=== PATIENT | male | born 1955 | race Caucasian/White ===

== ENCOUNTER → 2023-02-05 11:22 | Outpatient (CLI) | payer MEDICARE, SELFPAY ==
--- NOTE | ~2023-02-05 | US_ITS ---
Limited Abdominal Sonogram: Real-time sonographic imaging of the right upper quadrant was performed. Clinical History: Abdominal pain Findings: The liver appears normal with no evidence of mass lesion or bile duct dilatation. Main por francisca vein demonstrates normal direction of flow. The gallbladder is well distended, and appears normal with no evidence of gallstone or wall thickening. The common bile duct measures 4 mm. The pancreas is obscured by bowel gas shadowing. Right kidney measures 9.8 cm in length, without evidence for hydr onephrosis. Impression: No significant abnormality seen. Reviewed, dictated and finalized at location . Impression: No significant abnormality seen.
== END ==
PROVIDERS: Visit Provider Internal Medicine
DX: R10.9 Unspecified abdominal pain (principal)
CPT/HCPCS: 76705

== ENCOUNTER 2024-05-13 13:25 | Outpatient (RCR) | payer MEDICARE, SELFPAY ==
--- NOTE | 2024-05-13 14:23 | OPREHPOC ---
Outpatient Therapy Plan of Care This is a Multidisciplinary Plan of Care that may contain components documented by all disciplines (PT, OT, and ST.) PT Problem 1 PT Problem #1 Knowledge Deficit PT Goal 1 Goal / Goal Update *indep with HEP Target Visit 4 PT Problem 2 PT Problem #2 Pain PT Goal 1 Goal / Goal Update * no pain increase L knee with increased activity level Target Visit 4 PT Problem 3 PT Problem #3 Impaired Strength PT Goal 1 Goal / Goal Update * increase strength of L knee: *single leg standing L x 40 seconds with good stability Target Visit 4 PT Goal 2 Goal / Goal Update * pt perform mat exercises with 3# ankle wt x 20 reps Target Visit 4
--- NOTE | 2024-05-13 14:23 | PTOPEVAL1 ---
Assessment and note entered by Meli Howard PT Evaluation Information Assessment Status Evaluation Other ICD-10 Condition Codes ( S83.242A L knee medial meniscal tear PT) Onset Jan 2024 Subjective Information after playing golf in Jan, had L knee pain the next day; was better/worse and then went to see ; knee is feeling better xray report states minimal narrowing of L knee joint space Activity: active, fitness center- elliptical machine, leg weights, squat in standing with 45# weight on shoulders; arm exercises; golfs; Reported Pain Level Pain Score Self Report Additional Pain Score Comments pain range in the past week: 0-4/10 increase pain; end range of flexion, sleeping on his R side decrease pain: change positions not taking any pain meds; use of ice PRN- after work out at fitness center PRN; Assessment PT Clinical Summary Awais has the diagnosis of L knee pain/ medial meniscal tear. He is active and pain has decreased since onset of pain. He has been continuing to do fitness exercises and staying active. With the evaluation: he has good flexibility and ROM of hips and knees; good strength with mat exercises; slight decrease stability with single leg standing and side lying hip adduction; educated on good fitness exercises and posture with activity. He has a good understanding of progression of activity and monitor knee with increased activity. Skilled PT services are indicated PRN for pt as he progresses his activity level. He is to call if any questions or if changes occur in knee, to call for appointment for additional therapy. Plan of Care Interventions Electrical Stimulation,Hot Pack/Cold Pack,Manual Therapy,Neuro Re-education,Patient/Caregiver Education,Therapeutic Activities,Therapeutic Exercise,Ultrasound PT Services Indicated Yes Treatment Frequency and 0-1x/wk for 4 visits Duration These treatments will address the objective and functional deficits as defined above. The patient will be advanced safely and appropriately in order for the patient to progress towards his/her prior level of function. Additional exercises will be introduced and as well as a comprehensive home exercise program upon discharge, if needed, ?to ensure carryover of functional gains achieved in the clinic. This treatment plan has been reviewed and agreement upon by the patient.
--- NOTE | 2024-06-07 10:55 | PTOPDC ---
Assessment and note entered by Meli Howard, PT Assessment Status Discharge - Pt Not Present Other ICD-10 Condition Codes ( S83.242A L knee medial meniscal tear PT) Onset Jan 2024 Subjective Information pt was not seen this date. Assessment PT Clinical Summary Awais received the PT evaluation on May 13 and was issued a HEP. And was to call if needed additional treatment. He did not return for any further treatment. Discharge PT; the goals were not addressed. Plan of Care PT Services Indicated No
== END 2024-06-07 15:20 | disposition home or self-care (01) ==
LOC: ANHPT 13:25
PROVIDERS: Visit Provider Orthopaedic Surgery
DX: S83.242A Other tear of medial meniscus, current injury, left knee, initial encounter (principal)
CPT/HCPCS: 97110; 97161; 97530

== ENCOUNTER 2024-07-11 11:04 | Outpatient (CLI) | payer MEDICARE, SELFPAY ==
--- NOTE | ~2024-07-11 | MR_ITS ---
EXAMINATION: MR knee LT wo con DATE: 07/11/2024 11:36 INDICATION: Other tear of medial meniscus, current injury. Left knee pain. TECHNIQUE: Magnetic resonance imaging (MRI) of the left knee was performed without intravenous contra st. Sequences included axial PD-weighted FS FSE, coronal PD-weighted FSE and PD-weighted FS FSE, sagi ttal PD-weighted FSE, and sagittal T2-weighted FS FSE. COMPARISON: Left knee radiographs 05/06/24 FINDINGS: Medial compartment: There is a radial tear of posterior horn of medial meniscus. There is shallow partial-thickness carti lakeisha loss of tibial condyle and femoral condyle. Lateral compartment: Lateral meniscus is normal. Lateral compartment cartilage is normal. Patellofemoral compartment: Patellar cartilage is normal. Trochlear cartilage is normal. Ligaments and tendons: The anterior and posterior cruciate ligaments are normal. Medial collateral ligament is normal. There are changes of prior sprain of fibular collateral ligament characterized by increased signal intensi ty proximally. There is mild patellar tendinopathy. Fluid: There is a small knee joint effusion. There is edema in suprapatellar fat pad. There is mild prepatel lar and superficial infrapatellar bursitis. IMPRESSION: 1. Tear of the meniscus. 2. Mild medial compartment chondrosis. 3. Small knee joint effusion. Reviewed, dictated and finalized at location A.
== END 2024-07-11 11:05 | disposition home or self-care (01) ==
PROVIDERS: PCP Internal Medicine; Visit Provider Orthopaedic Surgery
DX: S83.242D Other tear of medial meniscus, current injury, left knee, subsequent encounter (principal); X58.XXXD Exposure to other specified factors, subsequent encounter; M25.462 Effusion, left knee
CPT/HCPCS: 73721

== ENCOUNTER 2024-11-15 07:26 | Outpatient (CLI) | payer MEDICARE, SELFPAY ==
--- NOTE | ~2024-11-15 | US_ITS ---
US right upper quadrant INDICATION: Abdomen pain. PROCEDURE: Realtime right upper abdominal ultrasound. COMPARISON: No prior studies for comparison. FINDINGS: The pancreas is normal without focal mass or pancreatic ductal dilation. Liver echotexture is normal without focal mass or intrahepatic biliary dilatation. There is normal directional flow i n the portal vein. The gallbladder is normal without stones, gallbladder wall thickening or pericholecystic fluid. Comm on bile duct measures 3 mm. No sonographic Matos's sign. IMPRESSION: 1: Normal limited abdominal ultrasound. Reviewed, dictated and finalized at location A.
== END 2024-11-15 07:27 | disposition home or self-care (01) ==
LOC: MICIMG 07:26
PROVIDERS: PCP Internal Medicine; Visit Provider Internal Medicine
DX: R10.11 Right upper quadrant pain (principal)
CPT/HCPCS: 76705

== ENCOUNTER 2024-11-16 10:15 | Outpatient (RCR) | payer MEDICARE, SELFPAY ==
--- NOTE | 2024-09-28 08:52 | PTOPEVAL1 ---
Assessment and note entered by Rocky Fitch Evaluation Information Assessment Status Evaluation ICD-10 Condition Codes (PT) Pain in left knee M25.562 Other ICD-10 Condition Codes ( S83.242A PT) Onset 01/19/24 Subjective Information Pt. reports that he was playing golf in January and noticed knee pain after the outing. He states that he did not seek medical attention for awhile after the onset of pain. He underwent x-ray and MRI which revealed a meniscus tear in the left knee. He states that his doctor suggested surgery , but states that insurance required therapy before surgery. He describes most pain on the inside of the left knee. He states that his pain is constant. He states that pain is noticed with all activities, even at rest. He states that he has attempted anti-inflammatories and Voltarin cream, with little relief. He reports that pain will make it difficult to fall asleep. He reports that he is not doing his normal activities, and states that he cannot currently golf due to pain. He reports that his goal is to decrease his knee pain with standing and walking activities. Reported Pain Level Pain Score 3: Self Report Assessment PT Clinical Summary Pt. is a 69 year old male who enters the clinic with a diagnosis of left knee pain due to medial meniscus tear. He presents with impaired l.e. flexibility, mild proximal l.e. weakness, impaired left knee ROM, impaired gait and pain. continued skilled PT is indicated in order to improve these areas to allow the pt. to achieve his goal of decreased pain to return to normal IADL's. Plan of Care Interventions Electrical Stimulation,Gait Training,Hot Pack/Cold Pack,Manual Therapy,Neuro Re-education,Patient/ Caregiver Education,Therapeutic Activities, Therapeutic Exercise PT Services Indicated Yes Treatment Frequency and 2x/week x 10 visits Duration These treatments will address the objective and functional deficits as defined above. The patient will be advanced safely and appropriately in order for the patient to progress towards his/her prior level of function. Additional exercises will be introduced and as well as a comprehensive home exercise program upon discharge, if needed, ?to ensure carryover of functional gains achieved in the clinic. This treatment plan has been reviewed and agreement upon by the patient.
--- NOTE | 2024-09-28 08:53 | OPREHPOC ---
Outpatient Therapy Plan of Care This is a Multidisciplinary Plan of Care that may contain components documented by all disciplines (PT, OT, and ST.) PT Problem 1 PT Problem #1 Knowledge Deficit PT Goal 1 Goal / Goal Update Pt. will be independent with a HEP addressing l.e. ROM and strength Target Visit 2 PT Problem 2 PT Problem #2 Pain PT Goal 1 Goal / Goal Update Pt. will report pain levels at 3/10 at worst with prolonged standing activities. pt. will be able to fall asleep at night without pain disturbance. Target Visit 10 PT Problem 3 PT Problem #3 Impaired Range of Motion PT Goal 1 Goal / Goal Update Pt. will achieve 0-125 degrees left knee AROM Target Visit 10 PT Problem 4 PT Problem #4 Impaired Functional Mobility PT Goal 1 Goal / Goal Update Pt. will present with less than 20% limitation on the LEFS Pt. will be able to return to normal IADL's including golf without noted pain. Target Visit 10 PT Problem 5 PT Problem #5 Impaired Strength PT Goal 1 Goal / Goal Update Pt. will present with 5/5 bilateral hip abduction strength Target Visit 10
--- NOTE | 2025-01-12 08:45 | PTOPDC ---
Assessment and note entered by Gordon Chow, PT Evaluation Information Assessment Status Discharge - Pt Not Present ICD-10 Condition Codes (PT) Pain in left knee M25.562 Other ICD-10 Condition Codes ( S83.242A PT) Onset 01/19/24 Subjective Information Pt. reports that he was playing golf in January and noticed knee pain after the outing. He states that he did not seek medical attention for awhile after the onset of pain. He underwent x-ray and MRI which revealed a meniscus tear in the left knee. He states that his doctor suggested surgery , but states that insurance required therapy before surgery. He describes most pain on the inside of the left knee. He states that his pain is constant. He states that pain is noticed with all activities, even at rest. He states that he has attempted anti-inflammatories and Voltarin cream, with little relief. He reports that pain will make it difficult to fall asleep. He reports that he is not doing his normal activities, and states that he cannot currently golf due to pain. He reports that his goal is to decrease his knee pain with standing and walking activities. Assessment PT Clinical Summary Patient last present for this episode of care on . Patient returned for new episode of care December 2024. Plan of Care PT Services Indicated Yes
== END 2024-12-27 23:59 | disposition home or self-care (01) ==
LOC: ANHPT 10:15
PROVIDERS: PCP Internal Medicine; Visit Provider Orthopaedic Surgery
DX: M25.562 Pain in left knee (principal); S83.242A Other tear of medial meniscus, current injury, left knee, initial encounter
CPT/HCPCS: 97035; 97110; 97140; 97161; 97530

== ENCOUNTER 2024-12-23 07:58 | Outpatient (CLI) | payer MEDICARE, SELFPAY ==
--- NOTE | 2024-12-23 08:10 | ECG_ITS ---
Test Date: 2024-12-23 08:13:34 Measurements Intervals [place] Rate: 66 P: 67 NE: 183 QRS: 60 QRSD: 103 T: 53 QT: 403 QTc: 423 Interpretive Statements SINUS RHYTHM No previous ECG available for comparison Electronically Signed On 12-23-2024 12:37:39 CDT by Power Mckenzie M.D.
--- OUTSIDE RECORDS SUMMARY | 2024-12-23 08:12 | XMS_ITS | Clinical Summary ---
Author Organization [facility] Address [address] [place] [address] Care Team Providers Care Lath Hand Name Role Phone Osman Barba MD Primary Care Provider [phone] Source Comments [facility],non-owned Affiliates and Associated Physician Practices is amultiple site organization consisting of ambulatory clinics and hospital sitesin [place], [place], [place] and [place]. This disclosure is being madepursuant to the Care Everywhere program and may not contain all information available regarding this patient. Last updated 18.[facility] Allergies No known active allergies Medications * Be aware that medications may not be up to date on this document. Alwaysverify current medications with the patient. [place]-3 Fatty Acids (FISH OIL) 1000 MG capsule Take 1,000 mg by mouth once daily Active Multiple Vitamin (MULTI VITAMIN MENS PO) Take 1 Tab by mouth once daily Active hydrocodone-acet aminophen (NORCO) 5-325 MG tablet Take 1 Tab by mouth every 4 hours as needed for Pain 30 Tab 0 07/30/2015 Active Active Problems Problem Noted Date Diagnosed Date Sprain of thumb Social History Tobacco Use Types Packs/Day Years Used Date Smoking Tobacco: Former Tobacco Cessation:Counseling Given: No Alcohol Use Standard Drinks/Week Comments No 0 (1 standard drink = 0.6 oz pur e alcohol) Sex and Gender Information Value Date Recorded Sex Assigned at Not on file Legal Sex Male 7:03 AM CDT Gender Identity Not on file Sexual Orientation Not on file Last Filed Vital Signs Vital Sign Reading Time Taken Comments Blood Pressure 139/81 07/30/2015 11:57 AM CDT Pulse 51 07/30/2015 11:57 AM CDT Temperature 36.4 C (97.6 F) 08/29/2015 10:34 AM CDT Respiratory Rate 16 07/30/2015 11:57 AM CDT Oxygen Saturation 100% 07/30/2015 11:57 AM CDT Inhaled Oxygen Concentration - - Weight 69.4 kg (153 lb) 11/15/2015 11:10 AM CDT Height 175.3 cm (5' 9) 11/15/2015 11:10 AM CDT Body Mass Index 22.59 11/15/2015 11:10 AM CDT Plan of Treatment Health Maintenance Due Date Last Done Comments COLOGUARD (AGES 45-75) - COL ON CA SCREENING 1955 COLON MONITORING 1955 COLONOSCOPY - COLON CA SCREENING 1955 CT COLONOGRAPHY - COLON CA SCREENING 1955 Colorectal Cancer Screening 1955 FIT - COLON CA SCREENING 1955 FLEX SIG - COLON CA SCREENING 1955 HEPATITIS C SCREENING 01/29/1973 DTAP/TDAP/TD VACCINES (1 - Tdap) 1974 PNEUMOCOCCAL VACCINE 50+ (1 of 1 - PCV) 2005 ZOSTER VACCINE (1 of 2) 2005 AAA SCREENING 02/04/2020 DEPRESSION SCREENING 04/20/2024 COVID-19 VACCINE (1 - 2023-2 5 season) 2024 INFLUENZA VACCINE (#1) 2024 Respiratory Syncytial Virus (RSV) Vaccine Pt: or over 60 yrs (1 - 1-dose 75+ series) 2030 HEPATITIS B VACCINE Aged Out No longe r eligible based on patient's age to complete this topic HIB VACCINE Aged Out No longer eligi ble based on patient's age to complete this topic HPV VACCINE Aged Out No longer eligi ble based on patient's age to complete this topic MENINGOCOCCAL (Group B) VACC INE SHARED DECISION-MAKING Aged Out No longer eligibl e based on patient's age to complete this topic MENINGOCOCCAL GROUPS A/C/Y/W VACCINE Aged Out No longer eligible b ased on patient's age to complete this topic Medical Devices Implanted Type Area Ed Physicians Device Identifier Shelf Expiration Date Model / Serial / Lot Juggernot Implanted:Qty: 1 on 07/30/2015 by Hong Sanderson MD at [facility] Right: Thumb 10/18/2019 [id number] / / [id number] Insurance ANTHEM ANTHEM Care Teams Lath Hand Relationship Specialty Start Date End Date Osman Barba MD [address] [facility] [address] [place] [address] PCP - General Internal Medicine 07/30/15
--- OUTSIDE RECORDS SUMMARY | 2024-12-23 08:12 | XMS_ITS | Clinical Summary ---
Author Organization [facility] Address [address] [place] [address] Care Team Providers Care Patternmaker Apprentice Wood Name Role Phone Osman Barba MD Primary Care Provider [phone] Allergies No known active allergies Medications Multiple Vitamin (MULTI-VITAMIN DAILY OR) Take 1 tablet by mouth daily. Active fish oil 1000 MG Cap capsule Take 1,000 mg by mouth daily. Active sildenafil 100 MG tablet Take 100 mg by mouth daily as needed. 05/28/2020 Active vitamin D3, cholecalciferol , 5000 UNITS capsule Take 1 capsule by mouth daily. Active Active Problems Problem Noted Date Diagnosed Date Sprain of thumb 05/14/2021 Arteriosclerotic vascular disease 11/26/2011 Overweight 11/26/2011 Sleep disorder 11/26/2011 Social History Tobacco Use Types Packs/Day Years Used Date Smoking Tobacco: Former Cigarettes 1 6 Smokeless Tobacco: Never Comments:Quit 1973 Alcohol Use Standard Drinks/Week Comments Not Currently 0 (1 standard drink = 0.6 oz pur e alcohol) PHQ-2 Answer Date Recorded PHQ-2 Score - If the patient scores above 3, please move on to questions 3-9 0 05/17/2021 Sex and Gender Information Value Date Recorded Sex Assigned at Not on file Legal Sex Male 7:40 PM CDT Gender Identity Not on file Sexual Orientation Not on file Last Filed Vital Signs Vital Sign Reading Time Taken Comments Blood Pressure 137/73 05/17/2021 8:52 AM TAPE DUPLICATOR Pulse 67 05/17/2021 8:16 AM TAPE DUPLICATOR Temperature 36.2 C (97.2 F) 05/17/2021 8:16 AM TAPE DUPLICATOR Respiratory Rate 18 05/17/2021 8:16 AM TAPE DUPLICATOR Oxygen Saturation 98% 05/17/2021 8:16 AM TAPE DUPLICATOR Inhaled Oxygen Concentration - - Weight 76.2 kg (168 lb) 05/17/2021 8:16 AM TAPE DUPLICATOR Height 172.7 cm (5' 8) 05/17/2021 8:16 AM TAPE DUPLICATOR Body Mass Index 25.54 05/17/2021 8:16 AM TAPE DUPLICATOR Plan of Treatment Health Maintenance Due Date Last Done Comments ASCVD LDL 1955 ASCVD Statin 1955 Colorectal Cancer Screening Colonoscopy (10 Years) 1955 Hepatitis C 1973 DTaP, Tdap and Td Vaccines ( 1 - Tdap) 1974 Pneumococcal Vaccine: 50+ Ye ars (1 of 1 - PCV) 2005 Zoster Vaccines (1 of 2) 2005 Annual Medicare Wellness Visit 02/04/2020 COVID-19 Vaccine (1 - 2023-2 5 season) 2024 RSV Immunization or 60+ Years (1 - 1-dose 75+ series) 2030 Meningococcal B Vaccine Aged Out No l onger eligible based on patient's age to complete this topic Meningococcal Vaccine Aged Out No silver yesika eligible based on patient's age to complete this topic RSV Immunizations Under 20 Months Aged Out No longer eligible based on patient's age to complete this topic Insurance [employer] Care Teams Patternmaker Apprentice Wood Relationship Specialty Start Date End Date Osman Barba MD [address] [facility] [address] [place] [address] PCP - General INTERNAL MEDICINE 05/30/20
== END 2024-12-23 07:59 | disposition home or self-care (01) ==
LOC: ANHSURGERY 08:07
PROVIDERS: PCP Internal Medicine; Visit Provider Orthopaedic Surgery
DX: I51.9 Heart disease, unspecified (principal)
CPT/HCPCS: 93005

== ENCOUNTER 2024-12-27 13:21 | Outpatient (CLI) | payer MEDICARE, SELFPAY ==
--- NOTE | ~2024-12-27 | XR_ITS ---
EXAMINATION: XR knee LT min 4V, 12/27/2024 13:26 CDT HISTORY: M25.562 - Pain in left knee COMPARISON: No comparisons available. Findings: No acute fracture or malalignment. No significant degenerative changes. Soft tissues unremarkable. Impression: No acute fracture or malalignment. Reviewed, dictated and finalized at location A. Impression: No acute fracture or malalignment.
== END 2024-12-27 13:22 | disposition home or self-care (01) ==
LOC: MICIMG 13:22
PROVIDERS: PCP Internal Medicine; Visit Provider Orthopaedic Surgery
DX: M25.562 Pain in left knee (principal)
CPT/HCPCS: 73564

== ENCOUNTER 2024-12-30 01:41 | Day surgery (SDC) | payer MEDICARE, SELFPAY ==
[2024-12-22 15:49] VITALS: BMI 23.9
--- NOTE | 2024-12-22 16:11 | PC.NURSE ---
Report to the Outpatient Waiting Room, entrance under the green pavilion located off [facility], at time __12:30PM___ on date __12/30/24___. Planned Procedure Time: __2:30PM____.? Time changes happen often and if your time is changed the preop area will call you the afternoon before. - You and your visitor will be asked to self-screen and do not enter if you have any COVID symptoms. Please call surgeon if you need to reschedule. - A mask is optional within the hospital at this time. Patients may have clear liquids (water, carbonated beverages, clear teas, apple juice) until 3 hours prior to surgery (11:30AM) with a maximum of 20 ounces. - No food from midnight until time of surgery and no smoking, or chewing tobacco (or any form of nicotine). No chewing gum, candy or mints. Take only the following medications with a SIP of water on the morning of surgery: NONE DO NOT STOP ANY OF YOUR OTHER PRESCRIPTION MEDICATIONS PRIOR TO SURGERY EXCEPT THE FOLLOWING Hold all vitamins and supplements for 3 days per anesthesiologist. Medications to discontinue per physician NONE Date to take last dose Please no make-up, nail czech, hairspray, perfume, deodorant, or body powder the day of surgery.? No jewelry (including any body piercings) or valuables the day of surgery, leave them at home.? Please take a shower or bath the night before, or the morning of, surgery with an antibacterial soap.? Wear comfortable, loose fitting clothing.? Children are encouraged to wear pajamas. - Jewelry must be removed prior to entering the operating room.? Rings and piercings that are not removed may be cut off. - The hospital will not accept responsibility for valuables.? - Please leave all valuables, including medications, at home the day of surgery. If you are going home after surgery, a licensed fleet driver must drive you home.? - NO public transportation without another adult if you receive anesthesia. - We recommend that an adult stay with you for 24 hours following discharge. - We also recommend that you do not drive, make important decision, drink alcoholic beverages, or take any drugs that were not prescribed by your health care provider for at least 24 hours after your discharge time. For Pediatric surgeries, we recommend two adults accompany the child home. Follow any additional instructions given to you from your surgeon. Telephone instructions given to ____PATIENT and asked if any additional questions and then verbalized understanding. Patient advised to call surgeon office or pre surgery nurse liaison [phone] if any additional questions.
[2024-12-30] VITALS (8 sets, daily range): BP systolic 123–161; BP diastolic 64–89; PULSE 56–79; RESP 10–18; TEMP 36.2–36.8; O2SAT 96–100
--- OUTSIDE RECORDS SUMMARY | 2024-12-30 01:44 | XMS_ITS | Clinical Summary ---
Author Organization [email or web address] Address [address] [place] [address] Care Team Providers Care Occupational Safety And Health Manager Name Role Phone Osman Barba MD Primary Care Provider [phone] Source Comments [email or web address],non-owned Affiliates and Associated Physician Practices is amultiple site organization consisting of ambulatory clinics and hospital sitesin [place], [place], [place] and [place]. This disclosure is being madepursuant to the Care Everywhere program and may not contain all information available regarding this patient. Last updated 18.[email or web address] Allergies No known active allergies Medications * Be aware that medications may not be up to date on this document. Alwaysverify current medications with the patient. [place]-3 Fatty Acids (FISH OIL) 1000 MG capsule [...] this topic Medical Devices Implanted Type Area Umbrella Mender Device Identifier Shelf Expiration Date Model / Serial / Lot Juggernot Implanted:Qty: 1 on 07/30/2015 by Hong Sanderson MD at [facility] Right: Thumb 10/18/2019 [id number] / / [id number] Insurance ANTHEM ANTHEM Care Teams Occupational Safety And Health Manager Relationship Specialty Start Date End Date Osman Barba MD [address] [facility] [address] [place] [address] PCP - General Internal Medicine 07/30/15
--- OUTSIDE RECORDS SUMMARY | 2024-12-30 01:44 | XMS_ITS | Clinical Summary ---
Author Organization [facility] Address [address] [place] [address] Care Team Providers Care Publicity Agent Name Role Phone Osman Barba MD Primary Care Provider [phone] Allergies No known active allergies Medications Multiple [...] Comments Blood Pressure 137/73 05/17/2021 8:52 AM SPECIMEN BOSS Pulse 67 05/17/2021 8:16 AM SPECIMEN BOSS Temperature 36.2 C (97.2 F) 05/17/2021 8:16 AM SPECIMEN BOSS Respiratory Rate 18 05/17/2021 8:16 AM SPECIMEN BOSS Oxygen Saturation 98% 05/17/2021 8:16 AM SPECIMEN BOSS Inhaled Oxygen Concentration - - Weight 76.2 kg (168 lb) 05/17/2021 8:16 AM SPECIMEN BOSS Height 172.7 cm (5' 8) 05/17/2021 8:16 AM SPECIMEN BOSS Body Mass Index 25.54 05/17/2021 8:16 AM SPECIMEN BOSS Plan of Treatment Health Maintenance Due Date [...] complete this topic Insurance [employer] Care Teams Publicity Agent Relationship Specialty Start Date End Date Osman Barba MD [address] [facility] [address] [place] [address] PCP - General INTERNAL MEDICINE 05/30/20
[2024-12-30] MEDS: ACETAMINOPHEN 500 MG TABLET 1000 MG PO (13:15)
[2024-12-30] MEDS: LACTATED RINGERS 1,000 ML 30 ML IV CONT ×2 (13:20→15:48)
[2024-12-30] MEDS: KETOROLAC 15 MG/ML VIAL (*BKC) IV PUSH ×2 (13:22→14:53)
--- NOTE | 2024-12-30 13:53 | WPDHPUPDATE1 ---
History and Physical Update Update Date/Time: 12/30/24 13:53 History and Physical has been reviewed, including an updated exam of the patient. There are NO changes in the patient's condition. Risks, benefits, and alternatives have been discussed and questions answered. Patient agrees to proceed with procedure.
--- NOTE | 2024-12-30 13:53 | WPDANESEPPF ---
Anes - Initial Pre Proc Eval Procedure: Operation Date: 12/30/24 14:30 Proposed Procedures p Left Knee Arthroscopy, Partial Medial Meniscectomy - Osbaldo Hughes MD Date/Time: 12/30/24 13:53 Surgeon: Osbaldo Hughes MD Pre Op Diagnosis: left knee medial meniscal tear Patient Data Age: 69 Gender: M Height: 1.75 m Weight: 74.7 kg Last Vital Signs Temp 36.8 C 12/30/24 12:45 Pulse 56 L 12/30/24 12:45 Resp 16 12/30/24 12:45 BP 149/73 H 12/30/24 12:45 Pulse Ox 99 12/30/24 12:45 O2 Del Method Room Air 12/30/24 12:45 Allergies Allergy/AdvReac Type Severity Reaction Status Date / Time No Known Drug Allergies Allergy Unknown Unknown Verified 12/30/24 12:50 Home Medications ?Medication ?Instructions ?Recorded ?Confirmed ?Type sildenafil 100 mg tablet (Viagra) 50 mg PO DAILY PRN sexual activity 12/22/24 12/22/24 History Patient hx anesthesia problems: none Family hx anesthesia problems: none Results Review: All pre-operative results and documents have been reviewed as part of the pre-operative evaluation. [facility] Past Medical History Medical History (Updated 12/30/24 @ 13:59 by Vlad Thomason DO) CAD (coronary artery disease) Osteoarthritis of right knee Surgical History Surgical History (Updated 12/30/24 @ 13:59 by Vlad Thomason DO) History of coronary artery stent placement x1 1997 Status post arthroscopic partial medial meniscectomy (~2017) Rt Knee Social History Social History Smoking packs per day: 0.75 Smoking cigarettes per day: 15.0 Years smoked: 4 Smoking pack-years: 3.00 Smoking status: Never smoker Tobacco type: cigarettes Smoking end date: 10/19/87 Alcohol intake: current Drinks per week: 2 Substance use type: marijuana Other substance usage details: 1987, [employer] X28 DAYS FOR [employer] Living arrangements: with family Additional living arrangements comments: Spiritual care concerns: No Anes - Eval Final PreProcedure Day of Procedure 12/30/24 13:53 Patient weight: normal Heart: regular rate and rhythm Lungs: clear to auscultation Airway: Mallampati scale class II Neurological: alert and oriented Last oral intake: >/= 8 hours ASA classification: III Emergent: no Anesthetic plan: proceed Anesthesia type and monitoring: general LMA and standard monitoring Results Review: All pre-operative results and documents have been reviewed as part of the pre-operative evaluation. Informed Consent: The patient's anesthetic plan and its attendant risks and benefits were discussed with the patient/family/POA. Questions were solicited and answers provided to the satisfaction of the patient/family/POA.
[2024-12-30] MEDS: ceFAZolin 2 GM in SODIUM CHLORIDE 0.9% IV 50 ML 100 ML IVPB (14:33)
[2024-12-30] MEDS: BUPIVACAINE/EPINEPHRINE 0.5% 50 ML VIAL 30 ML INFILTRATE (14:34)
[2024-12-30] MEDS: oxyCODONE HCL (*CRX) 5 MG TAB IR PO (16:15)
--- NOTE | 2025-01-02 14:52 | W.PM.PROC2 ---
Procedure Note - Detailed Date of Procedure 12/30/24 Pre-op Diagnosis Left knee medial meniscal tear Post-op Diagnosis Same Procedure Performed Arthroscopic partial medial meniscectomy, left knee. Surgeon Osbaldo Hughes MD Anesthesia General Findings Posterior horn medial meniscus tear. Mild synovitis. No significant arthritis. Medial femur chondromalacia grade 1, medial tibia grade 0. Lateral femur chondromalacia grade 0, lateral tibia grade 0. Patellar grade 0, trochlea grade 1. Description of Procedure The patient was identified and the surgical site confirmed and signed in the preoperative holding area. Antibiotics were started per protocol, and the patient was brought to the operative room and transferred to the OR table. A general anesthetic was administered. Supine position with the operative lower extremity position in the leg johnson after placement of a well padded tourniquet. The leg support was lowered and the contralateral limb was supported with a soft bolster. The knee was prepped and draped in the usual sterile fashion. A time-out was performed. The portal sites were marked and infiltrated with 0.5% Marcaine 20 mL. The limb was exsanguinated and the tourniquet inflated to 300 mL Hg. Standard inferolateral and inferomedial portals were established. Inflow was obtained with the saline pump. The camera was introduced. Diagnostic inspection of the joint was accomplished. The meniscus was debrided with the arthroscopic shaver and punches until stable. The radiofrequency probe was also used for further d?bridement. The arthroscopic instruments were removed. The tourniquet released and wounds closed with subcutaneous 4-0 Monocryl absorbable suture. Steri strips and a sterile dressing were applied. A light elastic wrap was placed. The patient was extubated and brought to the recovery room in stable condition. Estimated Blood Loss 5 Drains No Complications No immediate complications Condition Stable Disposition PACU [facility] Billing Surgery - Charge Forward: Surgery Billing
== END 2024-12-30 16:47 | disposition home or self-care (01) ==
PROVIDERS: PCP Internal Medicine; Visit Provider Orthopaedic Surgery
PROC: (CPT 29870; principal; 2024-12-30 14:30)
DX: S83.242A Other tear of medial meniscus, current injury, left knee, initial encounter (principal); M22.42 Chondromalacia patellae, left knee; M65.862 Other synovitis and tenosynovitis, left lower leg; X58.XXXA Exposure to other specified factors, initial encounter; Y93.53 Activity, golf
CPT/HCPCS: 29881; J0690; A9270; J1100; J1596; J1885; J2003; J2250; J2405; J2704; J3010; J7120

== ENCOUNTER 2025-01-12 08:45 | Outpatient (RCR) | payer MEDICARE, SELFPAY ==
--- NOTE | 2025-01-06 16:52 | PTOPEVAL1 ---
Assessment and note entered by Lorenza Valdes, PT Evaluation Information Assessment Status Evaluation Diagnosis z48.89 ICD-10 Condition Codes (PT) Pain in left knee M25.562 Onset 12/30/2024 Subjective Information Pt is 6 days post op, states he has been going up and down stairs alternating feet. Feels a dull pain with very low intensity of 1/10, increases with walking 4/10. Reports he has plate and screws across the pelvis and L hip from h/o previous injury which he feels is the cause of balance problems for him. He wants to just come for a few sessions and will do exercises at home. Reported Pain Level Pain Score 1: Self Report Assessment PT Clinical Summary Pt presents to therapy s/p 6 days post Arthroscopic partial medial meniscectomy, left knee (12/30/2024) by Dr. Hughes. Demos mild post op swelling to L knee, pain with long duration standing and long distance walking. Pt reports he has a very active lifestyle and wants to go back to doing all of his recreational activities like golf and to go back to the gym for his wellness workouts. He will benefit from skilled PT to reduce pain, improve ROM, strength and stability of the structures around the knee, improve balance and postural alignment and endurance in order to return to PLOF safely and reduce risks for re-injuries. Plan of Care Interventions Check Out for Orthotic/Prosthetic,Electrical Stimulation,Gait Training,Hot Pack/Cold Pack, Manual Therapy,Neuro Re-education,Patient/ Caregiver Education,Therapeutic Activities, Therapeutic Exercise PT Services Indicated Yes Treatment Frequency and 1-2x/wk x 6 sessions Duration These treatments will address the objective and functional deficits as defined above. The patient will be advanced safely and appropriately in order for the patient to progress towards his/her prior level of function. Additional exercises will be introduced and as well as a comprehensive home exercise program upon discharge, if needed, ?to ensure carryover of functional gains achieved in the clinic. This treatment plan has been reviewed and agreement upon by the patient.
== END 2025-04-05 23:59 | disposition home or self-care (01) ==
LOC: ANHPT 08:45
PROVIDERS: PCP Internal Medicine; Visit Provider Orthopaedic Surgery
DX: Z48.89 Encounter for other specified surgical aftercare (principal); M25.562 Pain in left knee
CPT/HCPCS: 97110; 97140; 97161; 97530